=== PATIENT | male | born 1990 | race Caucasian/White ===

== ENCOUNTER 2022-09-10 18:02 | Emergency (ER) | payer OTHER, SELFPAY ==
[2022-09-10 18:45] LABS: Basophils % 0.3 %; Eosinophils # 0.1 10^3/uL (0.0-0.8); Eosinophils % 0.8 %; Hematocrit 42.8 % (42.0-52.0); Hemoglobin 14.4 g/dL (11.7-16.6); Lymphocytes # 2.7 10^3/uL (0.8-4.8); Lymphocytes % 25.1 %; Mean Corpuscular HGB Conc 33.6 g/dL (30.0-36.0); Mean Corpuscular Hemoglobin 29.6 pg (28.0-34.0); Mean Corpuscular Volume 87.9 fl (80-94); Mean Platelet Volume 9.2 fL (7.4-10.4); Monocytes # 0.5 10^3/uL (0.2-0.9); Neutrophils # 7.38 10^3/uL (1.8-7.7); Neutrophils % 68.3 %; Nucleated Red Blood Cells % 0 %; Platelet Count 324 10^3/cmm (130-400); Red Blood Count 4.87 10^6/uL (4.1-5.3); Red Cell Distribution Width 12.2 % (12.1-15.1); White Blood Count 10.8 10^3/uL (4.0-10.0)
[2022-09-10 19:05] LABS: Alanine Aminotransferase 33 U/L (0-41); Albumin Level 4.8 g/dL (3.5-5.2); Alkaline Phosphatase 56 U/L (40-130); Anion Gap 17.4 (5-19); Aspartate Amino Transferase 20 U/L (0-40); Blood Urea Nitrogen 17 mg/dL (6-20); Carbon Dioxide 25 mmol/L (22-29); Chloride 104 mmol/L (98-107); Globulin 2.7 g/dL (1.3-4.6); Glomerular Filtration Rate 86.6 mL/min (90-130); Glucose 137 mg/dL (65-115); Lipase 22 U/L (13-60); Osmolality Calculated 298 mOsm/kg (285-295); Potassium 4.4 mmol/L (3.5-5.1); Sodium 142 mmol/L (136-145); Total Bilirubin 1.5 mg/dL (0.15-1.2); Total Protein 7.5 g/dL (6.6-8.7)
[2022-09-10 19:29] VITALS: BMI 34.4
[2022-09-10 19:31] VITALS: BP 148/86; PULSE 78; RESP 18; TEMP 36.5; O2SAT 100
--- NOTE | 2022-09-10 20:38 | ED_ITS ---
HPI - Abdominal Pain General: Chief Complaint: Abdominal Pain Stated Complaint: N/V Abd pain Left side pain Time Seen by Provider: 09/10/22 20:38 History of Present Illness: Patient presents to the ER with complaints of sharp stabbing left flank pain that started today about 1500 hrs. Patient went to urgent care they gave him an injection of Toradol and Zofran. Patient does report having history of kidney stone when he was 17 years old and this feels similar to that pain. MD elicited complaint: flank pain Pertinent past history: kidney stones Onset (ago): hour(s) (At 1500 today) Pain Consistency: colicky Location: L flank Severity: similar to previous episodes Quality: stabbing and sharp Radiation: none Migration to: no migration Exacerbating factors: nothing Relieving factors: nothing Associated Symptoms: Reports nausea; Denies chills, dysuria and fever(s) Treatments prior to arrival: other (Toradol and Zofran per urgent care) Review of Systems General: Reports: 10 or more systems reviewed and unremarkable except in HPI and below Const: Denies: fever(s) or chills Eyes: Denies: change in vision or photophobia ENMT: Denies: throat pain or odynophagia Card: Denies: chest pain or palpitations Resp: Denies: dyspnea or wheezing GI: Reports: nausea; Denies: abdominal pain : Reports: flank pain; Denies: difficulty urinating or dysuria Musc: Denies: neck pain, back pain or extremity pain Physical Exam Const: COMMON NORMALS: no acute distress, average body habitus, patient oriented x3, no limitations, healthy appearing and alert HENMT: COMMON NORMALS: normocephalic, atraumatic, hearing grossly normal bilaterally, external ears normal, Normal external nose present and moist oral mucous membranes HEAD & SCALP: normocephalic and atraumatic NOSE: Normal external nose present EXTERNAL EAR: Yes external ears normal Eye: COMMON NORMALS: Equal, round and reactive pupils present, EOMs intact bilaterally, conjunctivae normal and no scleral icterus CONJUNCTIVA: Yes conjunctivae normal PUPIL: Yes Equal, round and reactive pupils present Neck/C-Spine: COMMON NORMALS: full ROM, no lymphadenopathy, supple, no meningeal signs, no JVD and Thyroid normal THYROID: Thyroid normal Chest: COMMONS NORMALS: normal inspection of the chest and normal palpation of entire chest wall Resp: COMMON NORMALS: normal respiratory effort, No retractions, No use of accessory muscles and clear to auscultation bilaterally AUSCULTATION: clear to auscultation bilaterally Cardio: COMMON NORMALS: no JVD, regular rate, regular rhythm, S1 normal heart sound present, No gallops present (Cardio), No clicks present (Cardio) and No murmurs present (Cardio) RATE: regular rate RHYTHM: regular rhythm HEART SOUNDS: S1 normal heart sound present GI: COMMON NORMALS: Normal to inspection, nondistended, normoactive bowel sounds present, Soft to palpation, non-tender and no masses PALPATION: Yes Soft to palpation Neuro: COMMON NORMALS: patient oriented x3 SENSORIUM/ORIENTATION: Yes alert MENINGEAL SIGNS: Yes no meningeal signs Course Vital Signs: Vital signs: Vital Signs Temperature 97.7 F 09/10/22 19:31 Pulse Rate 80 09/10/22 22:00 Respiratory Rate 19 H 09/10/22 22:00 Blood Pressure 156/74 09/10/22 22:00 Pulse Oximetry 99 09/10/22 22:00 Oxygen Delivery Me thod Room Air 09/10/22 19:31 MDM - Abdominal Pain Medical Decision Making Patient presents to the ER with a left sharp stabbing flank pain since around 4 PM today. Patient does have a history of kidney stones in the past and states this feels like 1. Lab work was obtained as well as imaging which showed patient's white count was 10.8 BUN/creatinine was [address] showed a left distal ureter stone measuring 3.3 mm with mild to moderate hydronephrosis and hydroureter with minimal perinephric edema please correlate for pyelonephritis. Patient was given IV fluids as well as IV Toradol and fentanyl for pain and IV Rocephin for infection. These findings was discussed with the patient patient be discharged home on Cipro 500 mg 1 p.o. twice daily and Toradol p.o. for pain relief and will be instructed to follow-up with his PCP and/or urologist. Differential Diagnosis Likely calculus of kidney; Unlikely abdominal pain, acute appendicitis, constipation, diverticulitis, endometriosis, gastroenteritis, pancreatitis or small bowel obstruction Medical Records I reviewed the patient's medical records. Lab Data I reviewed the patient's lab results. 09/10/22 18:17 09/10/22 18:17 Labs/Radiology: Radiology Impressions Abdomen/Pelvis CT 09/10/22 20:39 IMPRESSION: 1. Left distal ureter 3.3 mm calculus with mild to moderate hydronephrosis and hydroureter with minimal perinephric edema, please correlate for pyelonephritis. 2. Hepatic steatosis. 3. Spleen enlarged to 15 cm. Laboratory Results WBC 10.8 10^3/uL (4.0-10.0) H 09/10/22 18:17 RBC 4.87 10^6/uL (4.1-5.3) 09/10/22 18:17 Hgb 14.4 g/dL (11.7-16.6) 09/10/22 18:17 Hct 42.8 % (42.0-52.0) 09/10/22 18:17 MCV 87.9 fl (80-94) 09/10/22 18:17 MCH 29.6 pg (28.0-34.0) 09/10/22 18:17 MCHC 33.6 g/dL (30.0-36.0) 09/10/22 18:17 RDW 12.2 % (12.1-15.1) 09/10/22 18:17 Plt Count 324 10^3/cmm (130-400) 09/10/22 18:17 MPV 9.2 fL (7.4-10.4) 09/10/22 18:17 Neut % (Auto) 68.3 % 09/10/22 18:17 Lymph % (Auto) 25.1 % 09/10/22 18:17 [place] % (Auto) 5.0 % 09/10/22 18:17 Eos % (Auto) 0.8 % 09/10/22 18:17 Baso % (Auto) 0.3 % 09/10/22 18:17 Neut # (Auto) 7.38 10^3/uL (1.8-7.7) 09/10/22 18:17 Lymph # (Auto) 2.7 10^3/uL (0.8-4.8) 09/10/22 18:17 [place] # (Auto) 0.5 10^3/uL (0.2-0.9) 09/10/22 18:17 Eos # (Auto) 0.1 10^3/uL (0.0-0.8) 09/10/22 18:17 Baso # (Auto) 0.0 10^3/uL (0.0-0.1) 09/10/22 18:17 Nucleated RBC % (auto) 0 % 09/10/22 18:17 Nucleated RBCs # 0.0 /100WBC 09/10/22 18:17 Sodium 142 mmol/L (136-145) 09/10/22 18:17 Potassium 4.4 mmol/L (3.5-5.1) 09/10/22 18:17 Chloride 104 mmol/L (98-107) 09/10/22 18:17 Carbon Dioxide 25 mmol/L (22-29) 09/10/22 18:17 Anion Gap 17.4 (5-19) 09/10/22 18:17 BUN 17 mg/dL (6-20) 09/10/22 18:17 Creatinine 1.0 mg/dL (0.7-1.2) 09/10/22 18:17 GFR Calculation 86.6 mL/min (90-130) L 09/10/22 18:17 Glucose 137 mg/dL (65-115) H 09/10/22 18:17 Calculated Osmolality 298 mOsm/kg (285-295) H 09/10/22 18:17 Calcium 9.0 mg/dL (8.5-10.5) 09/10/22 18:17 Total Bilirubin 1.5 mg/dL (0.15-1.2) H 09/10/22 18:17 AST 20 U/L (0-40) 09/10/22 18:17 ALT 33 U/L (0-41) 09/10/22 18:17 Alkaline Phosphatase 56 U/L (40-130) 09/10/22 18:17 Total Protein 7.5 g/dL (6.6-8.7) 09/10/22 18:17 Albumin 4.8 g/dL (3.5-5.2) 09/10/22 18:17 Globulin 2.7 g/dL (1.3-4.6) 09/10/22 18:17 Lipase 22 U/L (13-60) 09/10/22 18:17 Urine Color Nani (Yellow) 09/10/22 20:53 Urine Appearance Cloudy (CLEAR) A 09/10/22 20:53 Urine pH 5 (5-7) 09/10/22 20:53 Ur Specific [place] 1.030 (1.005-1.030) 09/10/22 20:53 Urine Protein 1+ (Negative) H 09/10/22 20:53 Urine Glucose (UA) Norm (Normal) 09/10/22 20:53 Urine Ketones 1+ (Negative) H 09/10/22 20:53 Urine Blood 3+ (Negative) H 09/10/22 20:53 Urine Nitrate Negative (Negative) 09/10/22 20:53 Urine Bilirubin 1+ (Negative) H 09/10/22 20:53 Urine Urobilinogen 1 mg/dL (Negative) H 09/10/22 20:53 Ur Leukocyte Esterase Trace (Negative) H 09/10/22 20:53 Urine RBC 40-50 /hpf (0-2) H 09/10/22 20:53 Urine WBC None /hpf (0-5) 09/10/22 20:53 Ur Squamous Epith Cells None /hpf (0-5) 09/10/22 20:53 Calcium Oxalate Crystal 15-25 /hpf H 09/10/22 20:53 Amorphous Sediment 2+ /hpf 09/10/22 20:53 Urine Bacteria 2+ /hpf (NONE) H 09/10/22 20:53 Urine Mucus 2+ /hpf 09/10/22 20:53 Discharge Plan Discharge Patient Disposition: Home Clinical Impression: Calculus of kidney Urinary tract infection Qualifiers: Urinary tract infection type: acute pyelonephritis Qualified Code(s): N10 - Acute pyelonephritis Condition: Stable Prescriptions: New ketorolac 10 mg tablet 10 mg PO TID PRN (Reason: pain) Qty: 14 0RF Cipro 500 mg tablet 500 mg PO Q12H Qty: 14 0RF No Action Wegovy 2.4 mg/0.75 mL pen injector 2.4 mg SUBCUT Q7D citalopram 20 mg tablet 20 mg PO DAILY Discharge Orders: Discharge ED (Routine); Ordered 09/10/22 Ordered By: Harmeet Lkae Patient Instructions: Kidney Stones, Kidney Infection (ED) Activity Restrictions/Additional Instructions: Please take your medicines as directed. You have been referred to case management as a referral for urology for your kidney stone. Please anticipate a call from them within the next couple days to set up an appointment time. Coding Level of Care Code ED [employer] for Sera Medley
--- NOTE | 2022-09-10 20:39 | CTR_ITS ---
PROCEDURE INFORMATION: Exam: CT Abdomen And Pelvis Without Contrast Exam date and time: 09/10/2022 9:10 PM Age: 31 years old Clinical indication: Abdominal pain; Flank; Left; Additional info: Left flank pain, HX of kidney stones TECHNIQUE: Imaging protocol: Computed tomography of the abdomen and pelvis without contrast. Radiation optimization: All CT scans at this facility use at least one of these dose optimization techniques: automated exposure control; mA and/or kV adjustment per patient size (includes targeted exams where dose is matched to clinical indication); or iterative reconstruction. REPORTING DATA: Count of CT and Cardiac NM exams in prior 12 months: This patient has received 0 known CTs and 0 known cardiac nuclear medicine studies in the 12 months prior to the current study. COMPARISON: No relevant prior studies available. RADIATION DOSE METRICS: Total DLP (mGy-cm): 1073.46 FINDINGS: Liver: Hepatic steatosis. Gallbladder and bile ducts: Normal. No calcified stones. No ductal dilation. Pancreas: Normal. No ductal dilation. Spleen: Spleen enlarged to 15 cm. Adrenal glands: Normal. No mass. Kidneys and ureters: Left distal ureter 3.3 mm calculus with mild to moderate hydronephrosis and hydroureter with minimal perinephric edema, please correlate for pyelonephritis. Stomach and bowel: Unremarkable. No obstruction. No mucosal thickening. Appendix: No evidence of appendicitis. Intraperitoneal space: Unremarkable. No free air. No significant fluid collection. Vasculature: Unremarkable. No abdominal aortic aneurysm. Lymph nodes: Unremarkable. No enlarged lymph nodes. Urinary bladder: Unremarkable as visualized. Reproductive: Unremarkable as visualized. Bones/joints: Unremarkable. No acute fracture. Soft tissues: Unremarkable. CT/CT kidney stone [id number] IMPRESSION: 1. Left distal ureter 3.3 mm calculus with mild to moderate hydronephrosis and hydroureter with minimal perinephric edema, please correlate for pyelonephritis. 2. Hepatic steatosis. 3. Spleen enlarged to 15 cm.
[2022-09-10] MEDS: sodium chloride 0.9% 1,000 ML 999 ML IV (20:56)
[2022-09-10 20:57] VITALS: RESP 15; O2SAT 99
[2022-09-10] MEDS: fentaNYL 50 mcg/mL INJ 2mL IVP (20:57)
[2022-09-10 20:59] VITALS: BP 172/81; PULSE 77; RESP 19; O2SAT 100
[2022-09-10 21:03] VITALS: BP 153/88
[2022-09-10 21:32] LABS: Add Urine Microscopic? YES; Bilirubin Urine 1+ (Negative); Blood Urine 3+ (Negative); Glucose Urine UA Norm (Normal); Ketones Urine 1+ (Negative); Leukocyte Esterase Urine Trace (Negative); Nitrate Urine Negative (Negative); Protein Urine 1+ (Negative); Urine Appearance Cloudy (CLEAR); Urine Color Amber (Yellow); Urobilinogen Urine 1 mg/dL (Negative); pH Urine 5 (5-7)
[2022-09-10 21:33] LABS: Add Urine Culture? Yes; Amorphous Sediment Urine 2+ /hpf; Bacteria Urine 2+ /hpf; Calcium Oxalate Crystals Urine 15-25 /hpf; Mucus Urine 2+ /hpf; RBC Urine 40-50 /hpf (0-2)
[2022-09-10 22:00] VITALS: BP 156/74; PULSE 80; RESP 19; O2SAT 99
[2022-09-10] MEDS: cefTRIAXone 1,000 MG in sodium chloride 0.9% (plus) 50 ML 100 MG IV (22:46)
[2022-09-10 23:08] VITALS: BP 141/80; PULSE 87; RESP 17; O2SAT 100
--- NOTE | 2022-09-11 09:49 | DCPLANNER ---
Addendum entered by Laney Garcia 09/12/22 08:45: manager business banking received the following message from the urology clinic regarding follow up appointment: He lives in [place]-he should seek medical treatment in [place]. manager business banking called patient at phone number [phone] to discuss with patient where he would want referral sent to. manager business banking unable to speak with patient at this time, a voicemail was left for patient to return top case assembler phone call. Original Note: manager business banking had message to schedule a follow up appointment for patient with urology. manager business banking sent patients information to the front office staff at urology. Patients information will be printed and reviewed. Clinic will call patient with appointment information.
--- NOTE | 2022-09-16 14:42 | PC.SOCIAL ---
Urology F/u Attempted again at this time to reach patient to schedule follow up appointment and unable to reach patient.
--- NOTE | 2022-09-25 13:17 | DCPLANNER ---
TCM called patient due to no primary care physician - no answer at this time.
== END 2022-09-10 23:16 | disposition home or self-care (01) ==
PROVIDERS: Emergency Medicine; Emergency Provider Emergency Medicine
DX: N10 Acute pyelonephritis (principal); N13.6 Pyonephrosis
CPT/HCPCS: 36415; 74176; 80053; 81001; 83690; 85025; 87086; 96361; 96374; 96375; 99285; J0696; J3010; J7030